=== PATIENT | female | born 1970 | race Caucasian/White ===

== ENCOUNTER 2021-01-24 02:18 | Emergency (ER) | payer OTHER ==
[~2021-01-24] VITALS: Ht 162.6 cm; Wt 73.0 kg
[2021-01-24 02:24] VITALS: BP 156/89
== END 2021-01-24 02:56 | disposition left against medical advice (07) ==
LOC: ER 02:18 → EDUNIT# 02:18 → ER 02:56
DX: Z53.21 Procedure and treatment not carried out due to patient leaving prior to being seen by health care provider (principal)

== ENCOUNTER 2022-11-01 08:23 | Emergency (ER) | payer MEDICAID, OTHER ==
[~2022-11-01] VITALS: Ht 167.6 cm; Wt 75.0 kg
[2022-11-01 08:24] VITALS: BP 151/88
[2022-11-01] MEDS ORDERED: ACETAMINOPHEN 325MG TABLET PO ONE (08:45)
== END 2022-11-01 09:38 | disposition home or self-care (01) ==
LOC: ER 08:24
DX: F41.9 Anxiety disorder, unspecified (principal); I49.9 Cardiac arrhythmia, unspecified
CPT/HCPCS: 93005; 99283